=== PATIENT | male | born 1970 | race African-American/Black ===

== ENCOUNTER 2023-08-10 13:38 | Emergency (ER) | payer MEDICAID ==
[~2023-08-10] VITALS: Ht 183.5 cm; Wt 189.0 kg
[2023-08-10 14:42] VITALS: TEMP 99.1
[2023-08-10] MEDS ORDERED: HYDR-4065 PO ×2 (14:45→17:48)
[2023-08-10] MEDS ORDERED: DULO-113 PO ×2 (14:45→17:48)
[2023-08-10] MEDS ORDERED: ALLO300T2 PO ×2 (14:45→17:48)
[2023-08-10] MEDS ORDERED: RISP3TAB35 PO ×2 (14:45→17:48)
[2023-08-10] MEDS ORDERED: PREG150C47 PO ×2 (14:45→17:48)
[2023-08-10] MEDS ORDERED: TIZA-211 PO ×2 (14:45→17:48)
[2023-08-10] MEDS ORDERED: METF-445 PO ×2 (14:45→17:48)
[2023-08-10] MEDS ORDERED: MIRT-92 PO ×2 (14:45→17:48)
[2023-08-10] MEDS ORDERED: GLIP10TA9 PO ×2 (14:45→17:48)
[2023-08-10] MEDS ORDERED: SIMV-43 PO ×2 (14:45→17:48)
[2023-08-10 19:00] VITALS: BP 145/85; PULSE 90; RESP 16
== END 2023-08-10 19:41 | disposition home or self-care (01) ==
LOC: EMS 13:38
DX: E11.9 Type 2 diabetes mellitus without complications (principal); G89.29 Other chronic pain; F31.9 Bipolar disorder, unspecified; Z98.890 Other specified postprocedural states; Z76.0 Encounter for issue of repeat prescription
CPT/HCPCS: 82962; 99282

== ENCOUNTER 2024-06-26 16:41 | Emergency (ER) | payer MEDICAID ==
[~2024-06-26] VITALS: Ht 183.5 cm; Wt 90.0 kg
[~2024-06-26 16:41] MED LIST: ALLO300T2 PO; DULO-113 PO; GLIP10TA16 PO; HYDR-4065 PO; METF-445 PO; MIRT-92 PO; PREG150C47 PO; RISP3TAB35 PO; SIMV-43 PO; TIZA-211 PO
[2024-06-26 16:53] VITALS: TEMP 97.6
[2024-06-26 22:00] VITALS: BP 121/69; PULSE 89; RESP 17; O2SAT 99
[2024-06-26] MEDS: KETOROLAC TROMETHAMINE 30 MG/ML VIAL IM ONE (22:37)
[2024-06-26] MEDS: TraMADol HCL 50 MG TABLET PO ONE (22:38)
[2024-06-26] MEDS: LIDOCAINE 5% TRANSDERMAL PATCH TD ONE (22:38)
[2024-06-26 23:17] LABS: BASOPHILS % (AUTO) 0.3 % (0.0-2.0); EOSINOPHILS % (AUTO) 0.5 % (1.0-6.0); HEMATOCRIT 49.1 % (41-53); HEMOGLOBIN 15.9 g/dL (13.5-17.5); LYMPHOCYTES # (AUTO) 2.4 K/uL (1.0-4.8); LYMPHOCYTES % (AUTO) 29.7 % (22.0-44.0); MEAN CORPUSCULAR HGB CONC 32.4 G/dL (31.0-37.0); MEAN CORPUSCULAR VOLUME 90 fL (80-100); MONOCYTES # (AUTO) 0.6 K/uL (0.1-1.0); NEUTROPHILS % (AUTO) 62.5 % (40.0-70.0); PLATELET COUNT (AUTO) 171 K/uL (150-450); RED BLOOD CELL COUNT(AUTO) 5.47 MIL/uL (4.50-5.90); RED CELL DISTRIBUTION WIDTH 12.9 % (11.5-14.5); WHITE BLOOD COUNT (AUTO) 7.9 K/uL (4.5-11.0)
[2024-06-26 23:19] LABS: ANION GAP 9 mmol/L (8-16); CALCIUM, TOTAL 9.4 mg/dL (8.8-10.5); CARBON DIOXIDE 30 mmol/L (22-29); CHLORIDE 99 mmol/L (98-107); CREATININE 0.95 mg/dL (0.60-1.30); GLOMERULAR FILTR. RATE CALC > 60 mL/min (>60); GLUCOSE,RANDOM 241 mg/dL (70-110); POTASSIUM 3.6 mmol/L (3.5-5.1); SODIUM SERUM 138 mmol/L (136-145); UREA NITROGEN, BLOOD 10 mg/dL (7-18)
[2024-06-26] MEDS ORDERED: CYCL-448 PO (23:49)
[2024-06-26] MEDS ORDERED: LIDO700A15 TP (23:49)
== END 2024-06-26 23:57 | disposition home or self-care (01) ==
LOC: EMS 16:41
DX: M79.18 Myalgia, other site (principal); M54.9 Dorsalgia, unspecified; E11.9 Type 2 diabetes mellitus without complications; M10.9 Gout, unspecified
CPT/HCPCS: 99284; 80048; 85025; 36415; 72100; 96372; J1885

== ENCOUNTER → 2025-04-03 | Emergency (ER) | payer MEDICAID ==
[~2025-04-03] VITALS: Ht 182.9 cm; Wt 80.5 kg
[~2025-04-03] MED LIST changes: +CYCL-448 PO; -DULO-113 PO; +DULO60CA73 PO; +HYDR-4062 PO; +LIDO-57 TP
[2025-04-03 12:07] VITALS: BP 125/94; PULSE 90; RESP 16; TEMP 98; O2SAT 100
[2025-04-03] MEDS: HYDROCODONE/ACETAMINOPHEN 5-325 MG TABLET PO ONE (14:54)
[2025-04-03] MEDS: KETOROLAC TROMETHAMINE 30 MG/ML VIAL IM ONE (14:54)
[2025-04-03] MEDS: LIDOCAINE 5% TRANSDERMAL PATCH TD ONE (14:55)
== END | disposition still patient (30) ==
LOC: EMS 11:59
DX: G89.29 Other chronic pain (principal); M54.9 Dorsalgia, unspecified; E11.9 Type 2 diabetes mellitus without complications; F31.9 Bipolar disorder, unspecified; M10.9 Gout, unspecified; Z98.890 Other specified postprocedural states; Z79.899 Other long term (current) drug therapy; Z88.7 Allergy status to serum and vaccine
CPT/HCPCS: 99283; 72100; 96372; J1885